=== PATIENT | male | born 1985 | race Caucasian/White ===

== ENCOUNTER 2017-04-09 18:32 | Emergency (ER) | payer MEDICAID ==
[2017-04-09 18:40] VITALS: BP 162/103; PULSE 98; RESP 18; TEMP 98.2; O2SAT 95
--- NOTE | 2017-04-09 18:56 | EDPHY ---
H & P Stated Complaint: hx herniated disc/sciatic pain/yesterday at 10 am noted numbness r back /hi Time Seen by Provider: 04/09/17 18:42 HPI/ROS: CHIEF COMPLAINT: Right-sided numbness extending into right leg. HISTORY OF PRESENT ILLNESS: The patient is a 32 y/o male arriving with his girlfriend complaining of numbness extending from his right abdomen into his right leg and right flank. He has a history of chronic back pain and a remote history of an L5-S1 diskectomy 14 years ago. Over the past day he's developed numbness starting around his right hip and progressing down to his mid anterior thigh, below his anterior knee, towards his right groin, extending in an irregular line across his midline lower abdomen, and up into his right flank. He cannot identify an obvious precipitating factor prior to his symptoms onset, but notes as he's become more worried, the symptoms seem to spread. He has significant anxiety. He denies weakness, fever, acute pain, incontinence, or other complaints. REVIEW OF SYSTEMS: Constitutional: No fever, no chills Eyes: No visual changes ENT: No sore throat Respiratory: No cough, no shortness of breath Cardiac: No chest pain Gastrointestinal: No nausea, no vomiting, no abdominal pain Genitourinary: No hematuria, no dysuria Musculoskeletal: No leg swelling Skin: No rash Neurological: see HPI Psychiatric: No depression - Personal History Current Tetanus/Diphtheria Vaccine: Yes - Medical/Surgical History Hx Asthma: No Hx Chronic Respiratory Disease: No Hx Diabetes: No Hx Cardiac Disease: No Hx Renal Disease: No Hx Cirrhosis: No Hx Alcoholism: No Hx HIV/AIDS: No Hx Splenectomy or Spleen Trauma: No Other PMH: herniated disc/l5/s1 sciatic pain - Social History Smoking Status: Current every day smoker Additional Social History: Daily smoker. Girlfriend at bedside. Recently arrived from [place] and is looking for a place to live. - Physical Exam Exam: General Appearance: Alert, no distress Eyes: Pupils equal and round, no conjunctival pallor or injection ENT, Mouth: Mucous membranes moist Neck: Normal inspection Respiratory: Lungs are clear to auscultation Cardiovascular: Regular rate and rhythm Gastrointestinal: Abdomen is soft and non-tender Neurological: A&O, normal gait, motor 5/5, including dorsiflexion of the ankle and 1st toe, sensation intact to light touch and pin sensation with a blunt needle in entire right leg, across abdomen, and along flank. Skin: Warm and dry, no rash Extremities: Nontender, no pedal edema Psychiatric: Mood and affect normal Constitutional: Initial Vital Signs Temperature (C) 36.8 C 04/09/17 18:36 Heart Rate 98 04/09/17 18:36 Respiratory Rate 18 04/09/17 18:36 Blood Pressure 162/103 H 04/09/17 18:36 O2 Sat (%) 95 04/09/17 18:36 O2 Delivery Mode Room Air Allergies/Adverse Reactions: cephalexin [From Keflex] Allergy (Verified 04/09/17 18:36) escitalopram [From Lexapro] Allergy (Verified 04/09/17 18:36) Home Medications: Medication Instructions Recorded NK [No Known Home Meds] 04/09/17 Medical Decision Making ED Course/Re-evaluation: This is a 32 y/o male with a remote history of L5-S1 diskectomy and chronic back pain who presents for evaluation of numbness in his right leg, hip, flank, groin, and across the midline of his lower abdomen. His reported paresthesias do not align with a dermatome nor the level of his prior back surgery. Sensation is intact to light touch and pin touch in all tested areas. He has normal strength in his legs and a normal gait. He is neurovascularly intact on exam. No indication for imaging. I think that anxiety is contributing to his sx. I've advised him to follow up with his PCP if not improved in a few days and given specific return precautions. I answered all his questions. He expresses agreement with this plan. Departure - Departure Disposition: Home, Routine, Self-Care Clinical Impression: Paresthesia Chronic back pain Qualifiers: Back pain location: low back pain Back pain laterality: right Sciatica presence : without sciatica Qualified Code(s): M54.5 - Low back pain Condition: Good Instructions: Paresthesia (ED), Chronic Back Pain (ED) Additional Instructions: 1. Follow up with a primary care provider on Wednesday to establish care and discuss your symptoms. 2. Return to the ED for leg weakness, significantly worsening back pain, or if the pain extends from your back down into your leg. Referrals: Olivia Johnson MD [place] [place] - As per Instructions Report Scribed for: Radha S Wellington Report Scribed by: Sandhya Herring Date of Report: 04/09/17 Time of Report: 18:45 Physician Review and Approval Statement: 04/09/17 18:45 Portions of this note were transcribed by a emergency medical services coordinator. I personally performed a history, physical exam, medical decision making, and confirmed accuracy of information the transcribed note.
== END 2017-04-09 19:17 | disposition home or self-care (01) ==
DX: R20.2 Paresthesia of skin (principal); M54.5 Low back pain; G89.29 Other chronic pain; F17.200 Nicotine dependence, unspecified, uncomplicated